=== PATIENT | female | born 1945 | race Caucasian/White ===

== ENCOUNTER 2016-10-27 10:28 | Inpatient (IN) | payer OTHER ==
[~2016-10-27] VITALS: Ht 170.2 cm; Wt 92.5 kg
[~2016-10-27 10:28] MED LIST: CIPRO500 MG PO; FISH OIL 1,2001 EAC3 PO; GABAPENTIN300 MG PO; GEMFIBROZIL600 MG PO; GLIPIZIDE XL5 MG PO; GLIPIZIDE5 MG PO; LISINOPRIL-HCT1 EAC3 PO; MAXZIDE 75/501 EACH PO; METFORMIN HCL500 M1 PO; NEURONTIN300 MG PO; OMEPRAZOLE20 MG PO; SIMVASTATIN80 MG PO; TRIAMTERENE/HC1 EACH PO; ZESTRIL20 MG PO; ZOCOR80 MG PO
[2016-10-27 11:02] LABS: POINT-OF-CARE METER ID UU13113702
[2016-10-27 12:48] LABS: EOSINOPHIL (%) 2.5 % (0-5); EOSINOPHIL COUNT 0.2 K/uL (0-0.3); HEMATOCRIT 43.8 % (36.0-46.0); IMMATURE GRANULOCYTE (%) 0.6 % (0.0-0.7); IMMATURE GRANULOCYTE COUNT 0.5 K/uL; LYMPHOCYTE COUNT 2.1 K/uL (1.0-2.8); MCH 28.9 PG (29.0-34.0); MCHC 33.8 G/DL (30.0-36.0); MCV 85.5 FL (83-99); MEAN PLAT.VOLUME 10.7 uM^3 (9.5-12.4); MONOCYTE (%) 7.5 % (3-12); MONOCYTE COUNT 0.7 K/uL (0-0.8); NEUTROPHIL (%) 65.3 % (45-76); NEUTROPHIL COUNT 5.8 K/uL (1.8-6.4); PLATELET COUNT 271 K/uL (156-360); RBC DIS.WIDTH-CV 14.1 % (11.8-14.6); RBC DIS.WIDTH-SD 43.1 % (39-53); RED BLOOD COUNT 5.12 M/uL (3.80-5.20); WHITE BLOOD COUNT 8.9 K/uL (4.1-10.2)
[2016-10-27 13:02] LABS: CHLORIDE 104 mEq/L (99-109); POTASSIUM 4.8 mEq/L (3.7-5.4); SODIUM 140 mEq/L (136-147)
[2016-10-27 13:04] LABS: GLUCOSE 188 mg/dL (70-99)
[2016-10-27 13:05] LABS: ANION GAP 11 MEQ/L (2-14)
[2016-10-27 13:06] LABS: TOTAL BILIRUBIN 0.6 mg/dL (0.0-1.0)
[2016-10-27 13:07] LABS: ALKALINE PHOSPHATASE 100 IU/L (3-129)
[2016-10-27 13:08] LABS: GFR ESTIMATE (CALCULATED) 39 mL/min/; TROP-I INTERPRETATION NEGATIVE; TROPONIN-I 0.01 ng/mL (0.0-0.30)
[2016-10-27 13:09] LABS: UREA NITROGEN (BUN) 22 mg/dL (9-23)
[2016-10-27 16:11] LABS: ADD MIUA? YES; BILIRUBIN NEGATIVE; BLOOD NEGATIVE; COLOR YELLOW ((YELLOW)); GLUCOSE (STRIP) NEGATIVE; KETONES NEGATIVE; LEUKOCYTES MODERATE; NITRITE NEGATIVE; PROTEIN (STRIP) NEGATIVE; SPECIFIC GRAVITY 1.009 (1.000-1.030); UROBILINOGEN 0.2 MG/DL (0.2-1.0)
[2016-10-27 16:19] LABS: BACTERIA RARE /HPF; CALCIUM OXALATE CRYSTALS 1+ /HPF; EPITHELIAL CELLS 2+ /HPF; MUCUS TRACE /LPF; RED BLOOD CELLS 0-5 /HPF (0-5); UCUL ADDED? NO; WHITE BLOOD CELLS 30-40 /HPF (0-5)
[2016-10-27] MEDS ORDERED: LIPITOR20 MG PO (18:17)
[2016-10-27] MEDS ORDERED: NEURONTIN300 MG PO (18:18)
[2016-10-27] MEDS ORDERED: ZESTRIL20 MG PO (18:19)
[2016-10-27] MEDS ORDERED: LO-DOSE ASPIRIN81 M1 PO (18:19)
[2016-10-27] MEDS ORDERED: VITAMIN D31000 UNI2 PO (18:20)
[2016-10-27] MEDS ORDERED: VICTOZA0.6 MG/0.1 SC (18:20)
[2016-10-27] MEDS ORDERED: HIPREX1 GM PO (18:20)
[2016-10-27] MEDS ORDERED: AMARYL4 MG PO (18:20)
[2016-10-27] MEDS ORDERED: VITAMIN B-6100 MG PO (18:21)
[2016-10-27 19:30] VITALS: BP 64/45
[2016-10-27 19:40] VITALS: BP 96/54
[2016-10-27 19:40] LABS: BASE EXCESS -0.5 mEq/L (-3 to +3); BICARBONATE 24.2 mEq/L (22-26); COMMENTS - BLOOD GASES C+A+; FI02 21 %; METHEMOGLOBIN 1.2 % (0-1.5); O2 FLOW 0 L/MIN; PCO2 39 mm Hg (35-45); PO2 67 mm Hg (80-100); SITE RR
[2016-10-27 19:43] VITALS: BP 108/64
[2016-10-27 19:59] LABS: POINT-OF-CARE METER ID UU14188625
[2016-10-27 20:41] LABS: D-DIMER ELISA 2.14 mg/L FEU (< 0.57)
[2016-10-27 20:52] LABS: TROP-I INTERPRETATION NEGATIVE; TROPONIN-I < 0.01 ng/mL (0.0-0.30)
[2016-10-27 21:00] VITALS: BP 132/72
[2016-10-27 22:11] LABS: TROP-I INTERPRETATION NEGATIVE; TROPONIN-I < 0.01 ng/mL (0.0-0.30)
[2016-10-27 23:55] VITALS: BP 143/86
[2016-10-28 03:45] VITALS: BP 129/73
[2016-10-28 04:47] LABS: HEMATOCRIT 39.9 % (36.0-46.0); MCH 29.3 PG (29.0-34.0); MCHC 33.8 G/DL (30.0-36.0); MCV 86.6 FL (83-99); MEAN PLAT.VOLUME 10.9 uM^3 (9.5-12.4); PLATELET COUNT 235 K/uL (156-360); RBC DIS.WIDTH-CV 14.2 % (11.8-14.6); RBC DIS.WIDTH-SD 44.1 % (39-53); RED BLOOD COUNT 4.61 M/uL (3.80-5.20); WHITE BLOOD COUNT 8.4 K/uL (4.1-10.2)
[2016-10-28 05:01] LABS: CHLORIDE 109 mEq/L (99-109); POTASSIUM 3.9 mEq/L (3.7-5.4); SODIUM 141 mEq/L (136-147)
[2016-10-28 05:03] LABS: GLUCOSE 161 mg/dL (70-99)
[2016-10-28 05:04] LABS: ANION GAP 11 MEQ/L (2-14)
[2016-10-28 05:05] LABS: TOTAL BILIRUBIN 0.6 mg/dL (0.0-1.0)
[2016-10-28 05:06] LABS: ALKALINE PHOSPHATASE 82 IU/L (3-129)
[2016-10-28 05:07] LABS: GFR ESTIMATE (CALCULATED) 43 mL/min/
[2016-10-28 05:08] LABS: DIRECT BILIRUBIN 0.2 mg/dL (0.0-0.3); UREA NITROGEN (BUN) 25 mg/dL (9-23)
[2016-10-28 05:09] LABS: TROP-I INTERPRETATION NEGATIVE; TROPONIN-I < 0.01 ng/mL (0.0-0.30)
[2016-10-28 07:27] VITALS: BP 113/55
[2016-10-28 11:42] VITALS: BP 129/74
[2016-10-28 15:47] VITALS: BP 129/66
[2016-10-28 20:10] VITALS: BP 139/65
[2016-10-28 20:57] LABS: POINT-OF-CARE METER ID UU13113698
[2016-10-28 23:54] VITALS: BP 143/70
[2016-10-29 04:00] VITALS: BP 131/65
[2016-10-29 05:52] LABS: HEMATOCRIT 41.4 % (36.0-46.0); MCH 28.3 PG (29.0-34.0); MCHC 32.4 G/DL (30.0-36.0); MCV 87.5 FL (83-99); MEAN PLAT.VOLUME 10.9 uM^3 (9.5-12.4); PLATELET COUNT 254 K/uL (156-360); RBC DIS.WIDTH-CV 14.1 % (11.8-14.6); RBC DIS.WIDTH-SD 44.8 % (39-53); RED BLOOD COUNT 4.73 M/uL (3.80-5.20); WHITE BLOOD COUNT 7.4 K/uL (4.1-10.2)
[2016-10-29 06:11] LABS: ANION GAP 9 MEQ/L (2-14); CHLORIDE 107 MEQ/L (99-109); GFR ESTIMATE (CALCULATED) 58 mL/min/; POTASSIUM 3.6 MEQ/L (3.7-5.4); SAMPLE HEMOLYSIS CHECK 0; SAMPLE ICTERIC CHECK 0; SAMPLE LIPEMIA CHECK 0; SODIUM 142 MEQ/L (136-147); UREA NITROGEN (BUN) 25 mg/dL (9-23)
[2016-10-29 06:14] LABS: GLUCOSE 60 mg/dL (70-99)
[2016-10-29 06:59] VITALS: BP 156/78
[2016-10-29 07:50] LABS: POINT-OF-CARE METER ID UU13113698
[2016-10-29 08:23] LABS: INTACT PARATHYROID HORMONE 67 pg/mL (10-69)
[2016-10-29 10:53] LABS: ANION GAP 8 MEQ/L (2-14); CHLORIDE 104 MEQ/L (99-109); GFR ESTIMATE (CALCULATED) 47 mL/min/; GLUCOSE 93 mg/dL (70-99); SAMPLE HEMOLYSIS CHECK 2; SAMPLE ICTERIC CHECK 0; SAMPLE LIPEMIA CHECK 0; SODIUM 139 MEQ/L (136-147); UREA NITROGEN (BUN) 25 mg/dL (9-23)
[2016-10-29 10:54] LABS: POTASSIUM ND MEQ/L (3.7-5.4)
[2016-10-29 11:22] VITALS: BP 128/75
[2016-10-29 11:31] LABS: POINT-OF-CARE METER ID UU13113698
[2016-10-29 13:07] LABS: POINT-OF-CARE METER ID UU13113698
[2016-10-29 15:11] LABS: POINT-OF-CARE METER ID UU13113698
[2016-10-29 16:48] VITALS: BP 139/68
[2016-10-29] MEDS ORDERED: CEFTIN500 MG PO (16:58)
[2016-10-29] MEDS ORDERED: MIDODRINE HCL5 MG PO (16:58)
== END 2016-10-29 17:37 | disposition home or self-care (01) | DRG 57 ==
LOC: EME 10:28 → EDOF 17:40 → 4EAST 17:40 → 5SOUTH 19:24 → 4EAST 19:53
PROVIDERS: Hospitalist; Internal Medicine; Internal Medicine Nephrology; Physician Assistant
DX: G90.3 Multi-system degeneration of the autonomic nervous system (principal); E11.22 Type 2 diabetes mellitus with diabetic chronic kidney disease; E11.649 Type 2 diabetes mellitus with hypoglycemia without coma; R27.0 Ataxia, unspecified; N39.0 Urinary tract infection, site not specified; E21.3 Hyperparathyroidism, unspecified; B96.20 Unspecified Escherichia coli [E. coli] as the cause of diseases classified elsewhere; N18.3 Chronic kidney disease, stage 3 (moderate); R51 Headache; I12.9 Hypertensive chronic kidney disease with stage 1 through stage 4 chronic kidney disease, or unspecified chronic kidney disease; I44.7 Left bundle-branch block, unspecified; Z79.84 Long term (current) use of oral hypoglycemic drugs; Z79.4 Long term (current) use of insulin; E86.0 Dehydration; E66.9 Obesity, unspecified; G89.29 Other chronic pain; Z68.31 Body mass index [BMI] 31.0-31.9, adult
CPT/HCPCS: 36600; 70450; 70551; 71020; 73030; 78582; 80048; 80053; 80069; 80076; 81003; 82306; 82803; 82948; 83605; 83970; 84484; 84999; 85025; 85027; 85379; 87040; 87077; 87086; 87186; 93005; 99281; 99285; A9540; A9567; J0696; J1650; J1815; J7030; J7050